=== PATIENT | male | born 1945 | race Caucasian/White ===

== ENCOUNTER 2019-11-05 15:15 | Emergency (ER) | payer OTHER ==
[2019-11-05 17:33] LABS: ABS Basophils 0.1 10^3/ul (0-0.2); ABS Eosinophils 0.1 10^3/ul (0-0.6); ABS Lymphocytes 1.4 10^3/ul (1.0-4.8); ABS Monocytes 0.9 10^3/ul (0-0.8); ABS Neutrophils 8.5 10^3/ul (1.5-7.7); Hematocrit 41 % (42-52); Hemoglobin 14.2 g/dL (14.0-18.0); Mean Corpuscular HGB Conc 35 g/dL (31-36); Mean Corpuscular Hemoglobin 32 pg (27-31); Mean Corpuscular Volume 93 fL (80-94); Mean Platelet Volume 8.5 fL (7.4-10.4); Nucleated Red Blood Cells % 0.1; Platelet Count 229 10^3/uL (150-450); Red Blood Count 4.41 10^6 /uL (4.18-5.48); Red Cell Distribution Width 14 % (10-15); White Blood Count 11.1 10^3/uL (3.5-10.8)
[2019-11-05 17:42] LABS: INR 1.15 (0.82-1.09)
[2019-11-05 17:52] LABS: Albumin 3.9 g/dL (3.2-5.2); Albumin/Globulin Ratio 1.2 (1-3); BUN/Creatinine Ratio 15.4 (8-20); Calcium 9.2 mg/dL (8.6-10.3); EGFR African American 84.2 (>60); EGFR Non-African American 69.6 (>60); Globulin 3.3 g/dL (2-4); Potassium 4.1 mmol/L (3.5-5.0); Total Bilirubin 0.3 mg/dL (0.2-1.0); Total Protein 7.2 g/dL (6.4-8.9)
[2019-11-05 21:02] LABS: Urine Appearance Cloudy; Urine Bilirubin Negative (Negative); Urine Blood 1+ (Negative); Urine Color Yellow; Urine Glucose Negative (Negative); Urine Ketones 1+ (Negative); Urine Nitrite Negative (Negative); Urine Protein 1+(30 mg/dL) (Negative); Urine Specific Gravity 1.023 (1.010-1.030); Urine Urobilinogen Negative (Negative)
[2019-11-05] MEDS ORDERED: Acetaminophen TAB* 325 MG PO ONE (21:23)
--- NOTE | 2019-11-05 21:28 | ED ---
GI/ HPI - HPI Summary HPI Summary: Patient complains of right testicle pain, swelling and erythema starting this morning. Denies trauma. No prior history of same. Denies fever, cough, sore throat, CP, SOB, N/3/D, abdominal pain, change in urine, change in BM, penile discharge. History of progressive difficulty urinating x 4 months with no evaluation by urology. Medical history is stomach cancer cleared for years ago. - History of Current Complaint Chief Complaint: EDUrogenitalProblems Time Seen by Provider: 11/05/19 20:29 Stated Complaint: URINARY PROBLEMS/SWOLLEN TESTICLES PER PT Hx Obtained From: Patient Onset/Duration: Started Hours Ago Timing: Constant Severity: Moderate Current Severity: Moderate Pain Intensity: 6 Location of Pain: Groin Additional Locations for Males: Scrotum, Testicles Pain Characteristics: Dull, Aching Associated Signs and Symptoms: Positive: Dysuria - Allergy/Home Medications Allergies/Adverse Reactions: Allergies Allergy/AdvReac Type Severity Reaction Status Date / Time Penicillins Allergy Anaphylatic Verified 11/05/19 15:21 Shock Cat Allergy Intermediate Difficulty Uncoded 11/05/19 15:21 Breathing/Wheezing Horses Allergy Intermediate Difficulty Uncoded 11/05/19 15:21 Breathing/Wheezing PMH/Surg Hx/FS Hx/Imm Hx Endocrine/Hematology History: Reports: Hx Anemia - GI BLEED Denies: Hx Diabetes, Hx Thyroid Disease Cardiovascular History: Denies: Hx Congestive Heart Failure, Hx Hypertension Respiratory History: Reports: Hx Asthma - LIFE TIME; INHALERS DAILY, Hx Sleep Apnea Denies: Hx Chronic Obstructive Pulmonary Disease (COPD) GI History: Reports: Other GI Disorders - GI BLEED, HOSPITALIZED [facility] [place] 03/05-2014 Denies: Hx Ulcer History: Denies: Hx Renal Disease Musculoskeletal History: Reports: Hx Arthritis - HANDS, Other Musculoskeletal History - OSTEOPEROSIS Sensory History: Reports: Hx Contacts or Glasses - GLASSES, Hx Glaucoma - NO MEDS, Hx Hearing Aid - WILL NOT BE WEARING/LEAVING AT HOME Opthamlomology History: Reports: Hx Contacts or Glasses - GLASSES, Hx Glaucoma - NO MEDS Neurological History: Reports: Hx Headaches, Hx Migraine - DAILY Psychiatric History: Reports: Hx Anxiety, Hx Depression - Surgical History Surgery Procedure, Year, and Place: 2006 Right Knee replacement [facility] [place]. 2013 LEFT KNEE SCOPE [facility] [place]. YOUNG CHILD RT [employer] FOOT 1940s. 1974 RT KNEE MM REPAIR Hx Anesthesia Reactions: No Infectious Disease History: No Infectious Disease History: Reports: Hx Hepatitis - approx 50 years ago Denies: Hx Human Immunodeficiency Virus (HIV), Traveled Outside the [place] in Last 30 Days - Family History Known Family History: Positive: Non-Contributory - Social History Alcohol Use: None Substance Use Type: Reports: None Smoking Status (MU): Former Smoker Type: Cigarettes Amount Used/How Often: 2PPD 15 YEARS Have You Smoked in the Last Year: No Review of Systems Constitutional: Negative Eyes: Negative ENT: Negative Cardiovascular: Negative Respiratory: Negative Gastrointestinal: Negative Positive: dysuria Musculoskeletal: Negative Skin: Negative Neurological: Negative Psychological: Normal All Other Systems Reviewed And Are Negative: Yes Physical Exam - Summary Physical Exam Summary: Testicles are erythematous, swollen and tender to palpation. No perineal involvement noted, specifically no indication of fourniers. Right testicle is significantly larger than left. Otherwise normal genital exam. Abdomen soft nontender. Triage Information Reviewed: Yes Vital Signs On Initial Exam: Initial Vitals Temp Pulse Resp BP Pulse Ox 98.5 F 88 18 147/67 98 11/05/19 15:17 11/05/19 15:17 11/05/19 15:17 11/05/19 15:17 11/05/19 15:17 Vital Signs Reviewed: Yes Appearance: Positive: Well-Appearing Skin: Positive: Warm Head/Face: Positive: Normal Head/Face Inspection Eyes: Positive: Normal ENT: Positive: Normal ENT inspection Neck: Positive: Supple Respiratory/Lung Sounds: Positive: Clear to Auscultation Cardiovascular: Positive: Normal Abdomen Description: Positive: Nontender Male Genital Exam: Positive: Epididymal Tenderness, Erythema, Scrotum Tenderness (R), Scrotum Tenderness (L), Testicular Tenderness (R), Testicular Tenderness (L). Negative: Hernia Mass, Urethral Discharge Musculoskeletal: Positive: Normal Neurological: Positive: Normal Psychiatric: Positive: Normal AVPU Assessment: Alert - [place] Coma Scale Best Eye Response: 4 - Spontaneous Best Motor Response: 6 - Obeys Commands Best Verbal Response: 5 - Oriented Coma Scale Total: 15 Procedures - Sedation Patient Received Moderate/Deep Sedation with Procedure: No Diagnostics - Vital Signs Vital Signs Temp Pulse Resp BP Pulse Ox 11/05/19 20:07 100 F 82 18 125/59 95 11/05/19 17:16 99.7 F 82 19 166/75 97 11/05/19 15:17 98.5 F 88 18 147/67 98 - Laboratory Lab Results: Lab Results 11/05/19 11/05/19 11/05/19 Range/Units 17:17 17:17 17:17 WBC 11.1 H (3.5-10.8) 10^3/uL RBC 4.41 (4.18-5.48) 10^6 /uL Hgb 14.2 (14.0-18.0) g/dL Hct 41 L (42-52) % MCV 93 (80-94) fL MCH 32 H (27-31) pg MCHC 35 (31-36) g/dL RDW 14 (10-15) % Plt Count 229 (150-450) 10^3/uL MPV 8.5 (7.4-10.4) fL Neut % (Auto) 76.9 % Lymph % (Auto) 13.0 % [place] % (Auto) 8.4 % Eos % (Auto) 1.0 % Baso % (Auto) 0.7 % Absolute Neuts (auto) 8.5 H (1.5-7.7) 10^3/ul Absolute Lymphs (auto) 1.4 (1.0-4.8) 10^3/ul Absolute Monos (auto) 0.9 H (0-0.8) 10^3/ul Absolute Eos (auto) 0.1 (0-0.6) 10^3/ul Absolute Basos (auto) 0.1 (0-0.2) 10^3/ul Absolute Nucleated RBC 0.0 10^3/ul Nucleated RBC % 0.1 INR (Anticoag Therapy) 1.15 H (0.82-1.09) Sodium 135 (135-145) mmol/L Potassium 4.1 (3.5-5.0) mmol/L Chloride 101 (101-111) mmol/L Carbon Dioxide 29 (22-32) mmol/L Anion Gap 5 (2-11) mmol/L BUN 16 (6-24) mg/dL Creatinine 1.04 (0.67-1.17) mg/dL Est GFR ( Amer) 84.2 (>60) Est GFR (Non-Af Amer) 69.6 (>60) BUN/Creatinine Ratio 15.4 (8-20) Glucose 103 H (70-100) mg/dL Calcium 9.2 (8.6-10.3) mg/dL Total Bilirubin 0.30 (0.2-1.0) mg/dL AST 18 (13-39) U/L ALT 19 (7-52) U/L Alkaline Phosphatase 91 (34-104) U/L Total Protein 7.2 (6.4-8.9) g/dL Albumin 3.9 (3.2-5.2) g/dL Globulin 3.3 (2-4) g/dL Albumin/Globulin Ratio 1.2 (1-3) Urine Color Urine Appearance Urine pH (5-9) Ur Specific [place] (1.010-1.030) Urine Protein (Negative) Urine Ketones (Negative) Urine Blood (Negative) Urine Nitrate (Negative) Urine Bilirubin (Negative) Urine Urobilinogen (Negative) Ur Leukocyte Esterase (Negative) Urine Glucose (Negative) 11/05/19 Range/Units 20:06 WBC (3.5-10.8) 10^3/uL RBC (4.18-5.48) 10^6 /uL Hgb (14.0-18.0) g/dL Hct (42-52) % MCV (80-94) fL MCH (27-31) pg MCHC (31-36) g/dL RDW (10-15) % Plt Count (150-450) 10^3/uL MPV (7.4-10.4) fL Neut % (Auto) % Lymph % (Auto) % [place] % (Auto) % Eos % (Auto) % Baso % (Auto) % Absolute Neuts (auto) (1.5-7.7) 10^3/ul Absolute Lymphs (auto) (1.0-4.8) 10^3/ul Absolute Monos (auto) (0-0.8) 10^3/ul Absolute Eos (auto) (0-0.6) 10^3/ul Absolute Basos (auto) (0-0.2) 10^3/ul Absolute Nucleated RBC 10^3/ul Nucleated RBC % INR (Anticoag Therapy) (0.82-1.09) Sodium (135-145) mmol/L Potassium (3.5-5.0) mmol/L Chloride (101-111) mmol/L Carbon Dioxide (22-32) mmol/L Anion Gap (2-11) mmol/L BUN (6-24) mg/dL Creatinine (0.67-1.17) mg/dL Est GFR ( Amer) (>60) Est GFR (Non-Af Amer) (>60) BUN/Creatinine Ratio (8-20) Glucose (70-100) mg/dL Calcium (8.6-10.3) mg/dL Total Bilirubin (0.2-1.0) mg/dL AST (13-39) U/L ALT (7-52) U/L Alkaline Phosphatase (34-104) U/L Total Protein (6.4-8.9) g/dL Albumin (3.2-5.2) g/dL Globulin (2-4) g/dL Albumin/Globulin Ratio (1-3) Urine Color Yellow Urine Appearance Cloudy Urine pH 5.0 (5-9) Ur Specific [place] 1.023 (1.010-1.030) Urine Protein 1+(30 mg/dl) A (Negative) Urine Ketones 1+ A (Negative) Urine Blood 1+ A (Negative) Urine Nitrate Negative (Negative) Urine Bilirubin Negative (Negative) Urine Urobilinogen Negative (Negative) Ur Leukocyte Esterase 3+ A (Negative) Urine Glucose Negative (Negative) Result Diagrams: 11/05/19 17:17 11/05/19 17:17 Lab Statement: Any lab studies that have been ordered have been reviewed, and results considered in the medical decision making process. GIGU Course/Dx - Course Course Of Treatment: Patient complains of right testicle pain, swelling and erythema starting this morning. Denies trauma. No prior history of same. Denies fever, cough, sore throat, CP, SOB, N/3/D, abdominal pain, change in urine, change in BM, penile discharge. History of progressive difficulty urinating x 4 months with no evaluation by urology. Medical history is stomach cancer cleared for years ago. Temperature 100 in triage. Vital signs otherwise within normal limits. WBC 11.1. Labs otherwise unremarkable. Urine positive for 3+ leuks, 3+ WBC, 3+ MVC. Ultrasound of testicles suggestive of right epididymitis. A loculated fluid collection seen lateral to the right epididymitis measures up to 5.1 cm. Testicular Doppler signal detected bilaterally. Right epididymitis cyst versus spermatocele up to 0.8 cm. Urology not medical social consultant. [facility]. [facility] accepted to [facility] by urology Dr. Segura, and hospitalist . 1 g vancomycin and 2 g cefepime administered IV here in the ED. - Diagnoses Provider Diagnoses: Abscess of epididymis or testis Discharge ED - Sign-Out/Discharge Documenting (check all that apply): Patient Departure - Discharge Plan Condition: Stable Disposition: TRANS HIGHER LVL OF CARE FAC Referrals: Mel Tomlin MD [Primary Care Provider] - - Billing Disposition and Condition Condition: STABLE Disposition: Trans Higher Lvl of Care Fac - Attestation Statements Provider Attestation: I saw the pt along w the midlevel provider and agree with their documentation as well as my documentation noted below:
[2019-11-05] MEDS ORDERED: Cefepime(*) 2 GM in NS 0.9% 50 ML* 50 ML IVPB ONE (21:31)
[2019-11-05] MEDS ORDERED: Vancomycin(*) 1,000 MG in NS 0.9% 250 ML* 250 ML IVPB ONE (21:31)
[2019-11-05 21:32] LABS: Urine Bacteria Absent (Absent); Urine Red Blood Cell 3+(>10/hpf) (Absent); Urine White Blood Cell 3+(>20/hpf) (Absent)
[2019-11-05 21:48] LABS: Rapid Strep Molecular Negative (Negative)
[2019-11-05 21:54] LABS: Influenza A Molecular NEGATIVE (Negative); Influenza B Molecular NEGATIVE (Negative)
[2019-11-05] MEDS ORDERED: Cefepime* 2 GM in Dextrose 50mL Q24H (Duplex) IV ONE (22:00)
[2019-11-05 22:39] LABS: C Reactive Protein 100.69 mg/L (<8.01)
[2019-11-06 00:12] VITALS: BP 140/76
--- NOTE | 2019-11-09 05:43 | ED ---
Imaging and Labs Follow Up Follow Up Type: Labs/Cultures Labs/Culture Result: Urine culture growing >100k enterococcus faecalis. Patient Communication/Plan: Pt. was ultimately treated with antibx and transferred to [facility] for scrotal abscess. No change in treatment needed. Provider Diagnoses: Abscess of epididymis or testis
== END 2019-11-06 00:11 | disposition short-term general hospital (02) ==
LOC: ED 15:15
DX: N45.4 Abscess of epididymis or testis (principal); D64.9 Anemia, unspecified; J45.909 Unspecified asthma, uncomplicated; F41.9 Anxiety disorder, unspecified; F32.9 Major depressive disorder, single episode, unspecified; Z87.891 Personal history of nicotine dependence; Z96.651 Presence of right artificial knee joint; Z88.0 Allergy status to penicillin
CPT/HCPCS: 36415; 76870; 80053; 81003; 81015; 85025; 85610; 86140; 87077; 87086; 87186; 87651; 96365; 96366; 96375; 99283; A9270-GY; J0692; J3370

== ENCOUNTER 2023-04-20 07:47 | Observation (INO) ==
[~2023-04-20 07:47] MED LIST: Buffered Lidocaine 1% SYRIN 1 ml INTRADERM ONE; HYDROcodone/ACETAMIN 5/325 mg TAB PO PRN; Lactated Ringers 1000 ml BAG 1,000 ML IV SCH; Metoclopramide 5 MG/ML VIAL (10 mg) IV PRN; Naloxone 0.4 mg VIAL 0.4 mg/ml 1 ml VIAL IV PRN; Ondansetron 4 mg VIAL 2 MG/ML 2 ml VIAL IV PRN; fentaNYL 100 mcg/2 ml 50 MCG/ML VIAL IV PRN
[2023-04-20] MEDS ORDERED: Midazolam 2 mg/2 ml VIAL 1 mg/ml 2 ml VIAL (2 mg) ONE (08:16)
[2023-04-20] MEDS ORDERED: Dexamethasone IV 4 MG/ML VIAL 1 ml VIAL ONE (08:16)
[2023-04-20] MEDS ORDERED: Ondansetron 4 mg VIAL 2 MG/ML 2 ml VIAL ONE (08:16)
[2023-04-20] MEDS ORDERED: Propofol 10 MG/ML 20 ML BTL ONE (08:16)
[2023-04-20 08:28] LABS: Rapid COVID-19 Molecular Undetected (Undetected)
[2023-04-20] MEDS ORDERED: fentaNYL 100 mcg/2 ml 50 MCG/ML VIAL ONE (08:58)
[2023-04-20] MEDS ORDERED: Artificial Tear OPHTH.OINT 3.5 GM ONE (09:14)
[2023-04-20] MEDS ORDERED: Desflurane 240 ML INH ONE ×2 (09:54→09:55)
[2023-04-20] MEDS ORDERED: Phenylephrine 40 mcg/mL 10mL (400mcg) SYRINGE ONE (10:07)
[2023-04-20] MEDS ORDERED: HYDROcodone/ACETAMIN 5/325 mg TAB ONE (11:38)
[2023-04-20] MEDS: NS 0.9% 1,000 ML IV SCH ×2 (14:06→20:47)
[2023-04-20] MEDS: oxyCODONE/Acetamin 5/325 mg TAB PO PRN ×2 (15:58→22:26)
[2023-04-20] MEDS: Lidocaine 2% JELLY 6 ML Topical TOPICAL PRN ×3 (15:58→22:27)
[2023-04-21] MEDS: Lidocaine 2% JELLY 6 ML Topical TOPICAL PRN (03:51)
[2023-04-21] MEDS: NS 0.9% 1,000 ML IV SCH (03:51)
[2023-04-21 06:15] VITALS: BP 144/65
== END 2023-04-21 12:07 | disposition home or self-care (01) ==
LOC: SSU 07:47 → OR 07:47
PROVIDERS: ADMIT Urology; ATTEND Urology